=== PATIENT | female | born 1980 | race Caucasian/White ===

== ENCOUNTER 2018-12-17 04:05 | Inpatient (IN) | payer MEDICAID ==
[2018-12-17] MEDS: LACTATED RINGER'S 1,000 ML IV (04:59)
[2018-12-17] MEDS: LACTATED RINGER'S 1,000 ML IV* ×3 (06:00→21:00)
[2018-12-17] MEDS ORDERED: LACTATED RINGER'S 1,000 ML IV (06:33)
[2018-12-17 06:46] LABS: ADD MAN DIFF? NO
[2018-12-17 06:48] LABS: BASOPHILS % 0.5 % (0.0-2.0); EOSINOPHILS # 0.1 10^3/ul (0.0-0.5); EOSINOPHILS % 1.3 % (0.0-7.0); HEMATOCRIT 38.8 % (37.0-47.0); HEMOGLOBIN 12.6 g/dl (12.0-16.0); LYMPHOCYTES # 1.7 10^3/ul (0.8-2.9); LYMPHOCYTES % 21.8 % (15.0-51.0); MEAN CORPUSCULAR HEMOGLOBIN 29.3 pg (29.0-33.0); MEAN CORPUSCULAR HGB CONC 32.5 g/dl (32.0-37.0); MEAN CORPUSCULAR VOLUME 90.2 fl (82.0-101.0); MEAN PLATELET VOLUME 10.6 fl (7.4-10.4); MONOCYTE # 0.6 10^3/ul (0.3-0.9); MONOCYTES % 7.3 % (0.0-11.0); NEUTROPHIL # 5.4 10^3/ul (1.6-7.5); NEUTROPHILS % 68.7 % (39.0-77.0); PLATELET COUNT 377 10^3/UL (140-415); RED CELL DISTRIBUTION WIDTH 16.3 % (11.5-14.5)
[2018-12-17 06:48] LABS: WHITE BLOOD COUNT 7.8 10^3/ul (4.8-10.8)
[2018-12-17] MEDS: DEXTROSE 5%-LR 1,000 ML IV ×2 (06:52→20:36)
[2018-12-17] MEDS: NIFEdipine 10 MG CAP PO (06:53)
[2018-12-17] MEDS ORDERED: OXYTOCIN 30 UNITS/LR 500 ML IV (07:00)
[2018-12-17] MEDS ORDERED: IBUPROFEN 600 MG TAB PO (07:00)
[2018-12-17] MEDS ORDERED: LIDOCAINE 1% (MPF) 30 ML INJ INJ (07:00)
[2018-12-17] MEDS ORDERED: NIFEdipine 10 MG CAP PO (07:00)
[2018-12-17] MEDS ORDERED: CARBOPROST 250 MCG INJ IM (07:00)
[2018-12-17] MEDS ORDERED: BUTORPHANOL 2 MG INJ IV (07:00)
[2018-12-17 07:07] LABS: INR 0.89; PROTIME 12.1 Sec (11.9-14.9); PT RATIO 0.9
[2018-12-17 07:08] LABS: PARTIAL THROMBOPLASTIN TIME 26.1 Sec (23.0-35.0)
[2018-12-17 07:46] LABS: HEPATITIS B SURFACE ANTIGEN NEGATIVE (NEGATIVE)
[2018-12-17] MEDS: BUTORPHANOL 2 MG INJ IV (11:13)
[2018-12-17] MEDS: BETAMET NA PHOS/AC(6 MG/ML) 2 ML INJ SYG IM (11:16)
[2018-12-17] MEDS: MAGNESIUM SULFATE 4 GM/100 ML 100 ML IV (11:24)
[2018-12-17] MEDS: MAGNESIUM SULFATE 20 GM/500 ML 500 ML IV ×2 (11:52→21:37)
[2018-12-17 12:30] LABS: ALANINE AMINOTRANSFERASE 15 IU/L (13-69); ALBUMIN/GLOBULIN RATIO 0.81; ALKALINE PHOSPHATASE 186 IU/L (42-121); ANION GAP 6 (5-13); ASPARTATE AMINO TRANSFERASE 17 IU/L (15-46); BILIRUBIN,INDIRECT 0.2 mg/dl (0-1.1); BILIRUBIN,TOTAL 0.2 mg/dl (0.2-1.3); BLOOD UREA NITROGEN 5 mg/dl (7-20); CALCIUM 8.6 mg/dl (8.4-10.2); CARBON DIOXIDE 22 mmol/L (21-31); CHLORIDE 110 mmol/L (97-110); CREATININE 0.42 mg/dl (0.44-1.00); Estimated GFR > 60 mL/min (>60); GLUCOSE 70 mg/dl (70-220); POTASSIUM 3.8 mmol/L (3.5-5.1); SODIUM 138 mmol/L (135-144); TOTAL PROTEIN 6.7 g/dl (6.1-8.1)
[2018-12-17 14:56] LABS: RAPID PLASMA REAGIN NONREACTIVE (NR)
[2018-12-17 18:19] LABS: MAGNESIUM 5.8 mg/dl (1.7-2.5)
[2018-12-18] MEDS: DEXTROSE 5%-LR 1,000 ML IV ×4 (00:35→22:33)
[2018-12-18 01:17] LABS: MAGNESIUM 6.3 mg/dl (1.7-2.5)
[2018-12-18] MEDS: LACTATED RINGER'S 1,000 ML IV* ×4 (02:49→21:00)
[2018-12-18 06:57] LABS: MAGNESIUM 6.6 mg/dl (1.7-2.5)
[2018-12-18] MEDS: MAGNESIUM SULFATE 20 GM/500 ML 500 ML IV ×2 (07:44→17:26)
[2018-12-18] MEDS: BETAMET NA PHOS/AC(6 MG/ML) 2 ML INJ SYG IM (11:16)
[2018-12-18 12:25] LABS: MAGNESIUM 6.6 mg/dl (1.7-2.5)
[2018-12-18 18:08] LABS: ADD UMIC YES; UR ASCORBIC ACID NEGATIVE (NEGATIVE); UR BACTERIA FEW /HPF (NONE SEEN); UR BILIRUBIN (Dip) NEGATIVE (NEGATIVE); UR BLOOD (Dip) 2+ mg/dL (NEGATIVE); UR CLARITY CLEAR (CLEAR); UR COLOR STRAW (YELLOW); UR GLUCOSE (Dip) 1+ mg/dL (NEGATIVE); UR KETONES (Dip) TRACE mg/dL (NEGATIVE); UR LEUKOCYTE ESTERASE (Dip) NEGATIVE Leu/ul (NEGATIVE); UR NITRITE (Dip) NEGATIVE (NEGATIVE); UR RBC 0 /HPF (0-5); UR SPECIFIC GRAVITY (Dip) 1.006 (1.003-1.030); UR TOTAL PROTEIN (Dip) NEGATIVE (NEGATIVE); UR UROBILINOGEN (Dip) NEGATIVE (NEGATIVE); UR WBC 1 /HPF (0-5)
[2018-12-18 18:27] LABS: MAGNESIUM 6.3 mg/dl (1.7-2.5)
[2018-12-19] MEDS: LACTATED RINGER'S 1,000 ML IV* (05:00)
[2018-12-19 08:27] LABS: MAGNESIUM 4.6 mg/dl (1.7-2.5)
[2018-12-19] MEDS: DEXTROSE 5%-LR 1,000 ML IV (11:29)
[2018-12-19] MEDS: NIFEdipine 10 MG CAP PO ×2 (17:12→20:59)
[2018-12-19 19:31] LABS: MAGNESIUM 2.4 mg/dl (1.7-2.5)
[2018-12-20] MEDS: NIFEdipine 10 MG CAP PO ×5 (01:00→18:11)
[2018-12-20] MEDS: LACTATED RINGER'S 1,000 ML IV* ×5 (04:42→21:00)
[2018-12-20] MEDS: DEXTROSE 5%-LR 1,000 ML IV (18:44)
[2018-12-20 19:39] LABS: ADD MAN DIFF? NO
[2018-12-20 19:43] LABS: WHITE BLOOD COUNT 9.1 10^3/ul (4.8-10.8)
[2018-12-20 19:43] LABS: BASOPHILS % 0.3 % (0.0-2.0); EOSINOPHILS % 0.3 % (0.0-7.0); HEMATOCRIT 37.4 % (37.0-47.0); LYMPHOCYTES # 1.3 10^3/ul (0.8-2.9); LYMPHOCYTES % 14.3 % (15.0-51.0); MEAN CORPUSCULAR HEMOGLOBIN 29.1 pg (29.0-33.0); MEAN CORPUSCULAR HGB CONC 32.1 g/dl (32.0-37.0); MEAN CORPUSCULAR VOLUME 90.6 fl (82.0-101.0); MEAN PLATELET VOLUME 10.3 fl (7.4-10.4); MONOCYTE # 0.7 10^3/ul (0.3-0.9); MONOCYTES % 7.9 % (0.0-11.0); NEUTROPHIL # 6.9 10^3/ul (1.6-7.5); NEUTROPHILS % 76.2 % (39.0-77.0); PLATELET COUNT 336 10^3/UL (140-415); RED BLOOD COUNT 4.13 10^6/ul (4.20-5.40); RED CELL DISTRIBUTION WIDTH 16.6 % (11.5-14.5)
[2018-12-20 20:04] LABS: INR 0.87; PARTIAL THROMBOPLASTIN TIME 25.2 Sec (23.0-35.0); PROTIME 11.9 Sec (11.9-14.9); PT RATIO 0.9
[2018-12-20 20:33] LABS: HEPATITIS B SURFACE ANTIGEN NEGATIVE (NEGATIVE)
[2018-12-20] MEDS: AZITHROMYCIN 500MG/NS (PMX) 250 ML IVPB (20:51)
[2018-12-20] MEDS: CITRIC ACID/NA CITRATE 30 ML CUP PO ×2 (20:57→21:04)
[2018-12-20] MEDS ORDERED: ONDANSETRON 4 MG INJ (21:17)
[2018-12-20] MEDS ORDERED: METOCLOPRAMIDE 10 MG INJ (21:17)
[2018-12-20] MEDS ORDERED: morphine SULFATE/PF (10 MG/10 ML) INJ (21:17)
[2018-12-20] MEDS ORDERED: KETOROLAC 30 MG INJ (21:17)
[2018-12-20] MEDS: CEFAZOLIN 2 GM/50 ML (PMX) 50 ML IVPB (21:34)
[2018-12-20] MEDS: METHYLERGONOVINE 0.2 MG INJ IM (22:03)
[2018-12-20] MEDS ORDERED: OXYTOCIN 30 UNITS/LR 500 ML IV (22:18)
[2018-12-20] MEDS ORDERED: FENTAnyl 50 MCG/ML VIAL (22:20)
[2018-12-20] MEDS: MISOPROSTOL 200 MCG TAB PR (23:18)
[2018-12-20] MEDS: OXYTOCIN 30 UNITS/LR 500 ML IV ×2 (23:26→23:29)
[2018-12-20] MEDS ORDERED: morphine 2 MG INJ IV ×3 (23:30)
[2018-12-20] MEDS ORDERED: NALOXONE (0.4 MG/ML) INJ IV (23:30)
[2018-12-20] MEDS ORDERED: morphine (1 MG/ML) 10ML SYRINGE IV ×3 (23:30)
[2018-12-20] MEDS ORDERED: DIPHENHYDRAMINE 50 MG INJ IV ×2 (23:30)
[2018-12-20] MEDS ORDERED: ONDANSETRON 4 MG INJ IV ×2 (23:30)
[2018-12-21] MEDS: MISOPROSTOL 200 MCG TAB PR (00:47)
[2018-12-21] MEDS: DEXTROSE 5%-LR 1,000 ML IV (01:50)
[2018-12-21] MEDS ORDERED: METHYLERGONOVINE 0.2 MG TAB PO (02:00)
[2018-12-21] MEDS ORDERED: LANOLIN HPA 1 PKT TOP (02:00)
[2018-12-21] MEDS ORDERED: MISOPROSTOL 200 MCG TAB PR (02:00)
[2018-12-21] MEDS ORDERED: METHYLERGONOVINE 0.2 MG INJ IM (02:00)
[2018-12-21] MEDS ORDERED: CARBOPROST 250 MCG INJ IM (02:00)
[2018-12-21] MEDS ORDERED: OXYTOCIN 30 UNITS/LR 500 ML IV (02:00)
[2018-12-21] MEDS ORDERED: MAGNESIUM HYDROXIDE 30ML CUP PO (02:00)
[2018-12-21] MEDS: OXYTOCIN 30 UNITS/LR 500 ML IV (03:35)
[2018-12-21 06:57] LABS: ADD MAN DIFF? NO
[2018-12-21 07:00] LABS: BASOPHILS % 0.1 % (0.0-2.0); HEMOGLOBIN 9.4 g/dl (12.0-16.0); LYMPHOCYTES # 1.4 10^3/ul (0.8-2.9); MEAN CORPUSCULAR HEMOGLOBIN 29.6 pg (29.0-33.0); MEAN CORPUSCULAR HGB CONC 32.4 g/dl (32.0-37.0); MEAN CORPUSCULAR VOLUME 91.2 fl (82.0-101.0); MEAN PLATELET VOLUME 10.4 fl (7.4-10.4); MONOCYTE # 1.1 10^3/ul (0.3-0.9); MONOCYTES % 7.9 % (0.0-11.0); NEUTROPHIL # 11.3 10^3/ul (1.6-7.5); NEUTROPHILS % 81.6 % (39.0-77.0); PLATELET COUNT 311 10^3/UL (140-415); RED BLOOD COUNT 3.18 10^6/ul (4.20-5.40); RED CELL DISTRIBUTION WIDTH 16.1 % (11.5-14.5)
[2018-12-21 07:00] LABS: WHITE BLOOD COUNT 13.9 10^3/ul (4.8-10.8)
[2018-12-21] MEDS: SENNA/DOCUSATE NA (8.6MG/50MG) TAB PO ×2 (09:39→20:32)
[2018-12-21] MEDS: LACTATED RINGER'S 1,000 ML IV ×2 (15:38→21:30)
[2018-12-21] MEDS: KETOROLAC 30 MG INJ IV (20:32)
[2018-12-21 20:44] LABS: RAPID PLASMA REAGIN NONREACTIVE (NR)
[2018-12-21] MEDS: IBUPROFEN 800 MG TAB PO (22:00)
[2018-12-22] MEDS: HYDROCODONE/APAP (5/325) TAB GTB ×4 (00:25→22:00)
[2018-12-22] MEDS: IBUPROFEN 800 MG TAB PO ×3 (03:09→22:00)
[2018-12-22] MEDS: LACTATED RINGER'S 1,000 ML IV ×3 (05:30→21:00)
[2018-12-22] MEDS: SENNA/DOCUSATE NA (8.6MG/50MG) TAB PO ×2 (10:04→21:00)
[2018-12-22] MEDS: MAGNESIUM HYDROXIDE 30ML CUP PO ×2 (15:28→23:30)
[2018-12-23] MEDS: HYDROCODONE/APAP (5/325) TAB NGT (02:03)
[2018-12-23] MEDS: LACTATED RINGER'S 1,000 ML IV ×3 (05:30→21:30)
[2018-12-23] MEDS: HYDROCODONE/APAP (5/325) TAB GTB ×3 (05:33→22:00)
[2018-12-23] MEDS: IBUPROFEN 800 MG TAB PO ×3 (05:33→21:24)
[2018-12-23] MEDS ORDERED: DIPHTH/TET/ACEL PERTUSS (ADULT) 0.5 ML VIAL IM* (09:00)
[2018-12-23] MEDS: MAGNESIUM HYDROXIDE 30ML CUP PO ×2 (09:00→21:24)
[2018-12-23] MEDS: SENNA/DOCUSATE NA (8.6MG/50MG) TAB PO ×2 (09:00→21:24)
[2018-12-23] MEDS: HYDROCODONE/APAP (5/325) TAB PO (09:57)
[2018-12-23] MEDS: MEASLES,MUMPS,RUBELLA VACCINE INJ SC* (20:00)
[2018-12-24] MEDS: HYDROCODONE/APAP (5/325) TAB PO (00:08)
[2018-12-24] MEDS: LACTATED RINGER'S 1,000 ML IV ×2 (05:30→13:30)
[2018-12-24] MEDS: IBUPROFEN 800 MG TAB PO ×2 (05:43→14:00)
[2018-12-24] MEDS: HYDROCODONE/APAP (5/325) TAB GTB ×2 (05:43→14:00)
[2018-12-24] MEDS: MAGNESIUM HYDROXIDE 30ML CUP PO (09:00)
[2018-12-24] MEDS: SENNA/DOCUSATE NA (8.6MG/50MG) TAB PO (09:11)
[2018-12-24] MEDS: DIPHTH/TET/ACEL PERTUSS (ADULT) 0.5 ML VIAL IM* ×2 (09:11→10:41)
== END 2018-12-24 15:40 | disposition home or self-care (01) | DRG 786 ==
LOC: OBT 04:05 → PP1 12-18 17:55 → L-D 12-20 20:36 → PP1 12-21 01:29 → L-D 04:05 → OBT 06:24 → L-D 12-20 23:06
PROVIDERS: Obstetrics & Gynecology
PROC: 10D00Z1 Extraction of Products of Conception, Low, Open Approach (ICD-10-PCS; principal; 2018-12-20 21:45)
DX: O65.5 Obstructed labor due to abnormality of maternal pelvic organs (principal); O60.13X0 Preterm labor second trimester with preterm delivery third trimester, not applicable or unspecified; O34.211 Maternal care for low transverse scar from previous cesarean delivery; O76 Abnormality in fetal heart rate and rhythm complicating labor and delivery; Z3A.35 35 weeks gestation of pregnancy; Z37.0 Single live birth
CPT/HCPCS: 36415; 76816; 76818; 80053; 81001; 83735; 85025; 85610; 85730; 86592; 86850; 86900; 86901; 87081; 87086; 87340; 88307; 90715; 93970; 96360; 99464